=== PATIENT | male | born 1980 | race African-American/Black ===

== ENCOUNTER 2018-02-19 12:52 | Emergency (ER) | payer OTHER ==
[~2018-02-19] VITALS: Ht 177.8 cm; Wt 81.6 kg
[~2018-02-19 12:52] MED LIST: PHENYTOIN SODI300 MG PO
[2018-02-19 13:03] VITALS: BP 144/78
--- NOTE | 2018-02-19 13:09 | Emergency Room Report ---
History of Present Illness General Chief Complaint: Seizure Source: Patient Present Illness HPI Patient presents by paramedics for reports of seizure activity Patient was witnessed having a tonic-clonic seizure Patient's significant other is here at bedside reports that patient has had more recent onset of seizures over the past several months Last seizure was about 2 months ago Patient has been on Dilantin Patient also complaining of left shoulder pain And it was reported that the patient has the left shoulder pain after his seizure activity this happens on every seizure activity that he has He has had x-rays before in no acute pathology has been seen Denies any chest pain or shortness of breath patient has been taking 300 mg of Dilantin And there has been no change in that dosage even after breakthrough seizures Allergies: Coded Allergies: No Known Allergies (Unverified , 02/19/18) Patient History Past Medical History: see triage record Pertinent Family History: none Reviewed Nursing Documentation: PMH: Agreed; PSxH: Agreed Nursing Documentation-PMH Hx Seizures: Yes Review of Systems All Other Systems: negative except mentioned in HPI Physical Exam Vital Signs Date Time Temp Pulse Resp B/P (MAP) Pulse Ox O2 Delivery O2 Flow Rate FiO2 02/19/18 12:51 98.3 116 20 144/78 95 Room Air 98.2 Sp02 EP Interpretation: reviewed, normal General Appearance: mild distress - Appears uncomfortable in pain from left shoulder Head: normocephalic, other - Small contusion right mid forehead Eyes: bilateral eye PERRL, bilateral eye EOMI ENT: hearing grossly normal, normal pharynx Neck: supple Respiratory: lungs clear, normal breath sounds Cardiovascular #1: normal peripheral pulses, regular rate, rhythm Gastrointestinal: normal bowel sounds, non tender, soft Musculoskeletal: back normal Neurologic: normal inspection, alert, oriented x3, responsive Skin: normal color, no rash Lymphatic: normal inspection Medical Decision Making Diagnostic Impression: Primary Impression: Seizure disorder ER Course Patient has history of seizure disorder is on Dilantin At this time was given pain medication because of his left shoulder pain Patient's Dilantin level is significantly low After discussion regarding this there was some note that the patient at times is not take of the medication Patient already is aware that he is not allowed to drive He was discussed this regarding not driving upon initial seizure activity Patient replaced IV Dilantin and requires close follow-up Labs Test 02/19/18 12:56 White Blood Count 5.3 K/UL (4.8-10.8) Red Blood Count 5.25 M/UL (4.70-6.10) Hemoglobin 14.3 G/DL (14.2-18.0) Hematocrit 44.1 % (42.0-52.0) Mean Corpuscular Volume 84 FL (80-99) Mean Corpuscular Hemoglobin 27.3 PG (27.0-31.0) Mean Corpuscular Hemoglobin Concent 32.4 G/DL (32.0-36.0) Red Cell Distribution Width 11.7 % (11.6-14.8) Platelet Count 222 K/UL (150-450) Mean Platelet Volume 7.6 FL (6.5-10.1) Neutrophils (%) (Auto) 48.5 % (45.0-75.0) Lymphocytes (%) (Auto) 41.7 % (20.0-45.0) Monocytes (%) (Auto) 7.7 % (1.0-10.0) Eosinophils (%) (Auto) 0.3 % (0.0-3.0) Basophils (%) (Auto) 1.8 % (0.0-2.0) Sodium Level 138 MMOL/L (136-145) Potassium Level 4.1 MMOL/L (3.5-5.1) Chloride Level 101 MMOL/L (98-107) Carbon Dioxide Level 20 MMOL/L (21-32) Anion Gap 17 mmol/L (5-15) Blood Urea Nitrogen 7 mg/dL (7-18) Creatinine 1.3 MG/DL (0.55-1.30) Estimat Glomerular Filtration Rate > 60 mL/min (>60) Glucose Level 135 MG/DL (74-106) Calcium Level 8.8 MG/DL (8.5-10.1) Total Bilirubin 0.3 MG/DL (0.2-1.0) Aspartate Amino Transf (AST/SGOT) 20 U/L (15-37) Alanine Aminotransferase (ALT/SGPT) 24 U/L (12-78) Alkaline Phosphatase 82 U/L (46-116) Total Protein 8.2 G/DL (6.4-8.2) Albumin 4.2 G/DL (3.4-5.0) Globulin 4.0 g/dL Albumin/Globulin Ratio 1.0 (1.0-2.7) Lipase 113 U/L (73-393) Phenytoin (Dilantin) Level 2.7 ug/mL (10-20) Last Vital Signs Date Time Temp Pulse Resp B/P (MAP) Pulse Ox O2 Delivery O2 Flow Rate FiO2 02/19/18 13:03 116 20 Room Air 02/19/18 13:03 98.2 144/78 95 98.2 Status: improved Disposition: HOME, SELF-CARE Condition: Improved Additional Instructions: Patient is provided with the discharge instructions notified to follow up with primary doctor in the next 2-3 days otherwise return to the er with any worsening symptoms. Please note that this report is being documented using [employer] technology. This can lead to erroneous entry secondary to incorrect interpretation by the dictating instrument. Joslyn Lira DO Feb 19, 2018 13:09
[2018-02-19] MEDS ORDERED: Morphine Sulfate 4mg/ml Inj (IV USE ONLY) IVP ONE (13:15)
[2018-02-19] MEDS ORDERED: LORazepam Inj 2mg/ml 1ml IV ONE (13:15)
[2018-02-19 13:27] LABS: BASOPHILS % (AUTO) 1.8 % (0.0-2.0); EOSINOPHILS % (AUTO) 0.3 % (0.0-3.0); HEMATOCRIT 44.1 % (42.0-52.0); HEMOGLOBIN 14.3 G/DL (14.2-18.0); LYMPHOCYTES % (AUTO) 41.7 % (20.0-45.0); MEAN CORPUSCULAR VOLUME 84 FL (80-99); MONOCYTES % (AUTO) 7.7 % (1.0-10.0); NEUTROPHILS % (AUTO) 48.5 % (45.0-75.0); PLATELET COUNT 222 K/UL (150-450); RED BLOOD COUNT 5.25 M/UL (4.70-6.10); RED CELL DISTRIBUTION WIDTH 11.7 % (11.6-14.8); WHITE BLOOD COUNT 5.3 K/UL (4.8-10.8)
[2018-02-19 13:37] LABS: ANION GAP 17 mmol/L (5-15); BLOOD UREA NITROGEN 7 mg/dL (7-18); CALCIUM 8.8 MG/DL (8.5-10.1); CARBON DIOXIDE 20 MMOL/L (21-32); CHLORIDE 101 MMOL/L (98-107); CREATININE 1.3 MG/DL (0.55-1.30); POTASSIUM 4.1 MMOL/L (3.5-5.1); SODIUM 138 MMOL/L (136-145)
[2018-02-19 13:43] LABS: ALANINE AMINOTRANSFERASE 24 U/L (12-78); ALBUMIN 4.2 G/DL (3.4-5.0); ALKALINE PHOSPHATASE 82 U/L (46-116); ASPARTATE AMINO TRANSFERASE 20 U/L (15-37); BILIRUBIN,TOTAL 0.3 MG/DL (0.2-1.0)
[2018-02-19 14:03] VITALS: BP 107/67
[2018-02-19] MEDS ORDERED: Phenytoin 500 MG in NS 110 ML IVPB ONE (14:15)
[2018-02-19 14:53] VITALS: BP 120/69
[2018-02-19 14:55] VITALS: BP 120/69
== END 2018-02-19 15:14 | disposition home or self-care (01) ==
LOC: EDBD 12:52 → EMR 13:15
DX: G40.909 Epilepsy, unspecified, not intractable, without status epilepticus (principal)
CPT/HCPCS: 36415; 80053; 80185; 83690; 85025; 99283; J1165; J2270; J2405